=== PATIENT | male | born 1965 | race Caucasian/White ===

== ENCOUNTER 2019-12-10 09:16 | Emergency (ER) | payer MEDICARE ==
[2019-12-10] MEDS ORDERED: Dextrose 50% Abboject 50 ML SYRINGE ONE (09:31)
[2019-12-10] MEDS ORDERED: Insulin Regular 300 UNITS/3 ML VIAL ONE (09:31)
[2019-12-10] MEDS ORDERED: Norepinephrine 8 MG/0.9% NS 0 ML ONE (09:37)
[2019-12-10] MEDS ORDERED: Norepinephrine 8 MG/0.9% NS 250 ML ONE (09:43)
[2019-12-10] MEDS ORDERED: Albuterol Sulfate 2.5 mg/3 ml Neb ONE (09:46)
[2019-12-10] MEDS ORDERED: Albuterol Sulfate 2.5 mg/0.5 ml Neb ONE (09:47)
[2019-12-10 10:18] LABS: ALT (SGPT) 60 U/L (8-55); AST (SGOT) 128 U/L (5-34); Albumin 1.4 g/dL (3.5-5.0); Alkaline Phosphatase 148 U/L (40-110); Anion Gap 16 mmol/L (10-20); BUN (Urea Nitrogen) 53 mg/dL (8.4-25.7); Bilirubin, Total 0.4 mg/dL (0.2-1.2); CK (CPK) 157 U/L (30-200); Calc. Creatinine Clearance 0 mL/min (70-130); Calcium 9.2 mg/dL (7.8-10.44); Carbon Dioxide 17 mmol/L (22-29); Chloride 110 mmol/L (98-107); Estimated GFR-MDRD 35; Globulin 3.5 g/dL (2.4-3.5); Glucose 97 mg/dL (70-105); Potassium 4.8 mmol/L (3.5-5.1); Protein, Total 4.9 g/dL (6.0-8.3); Sodium 138 mmol/L (136-145)
[2019-12-10 10:25] LABS: Band 4 % (5-11); Hemoglobin 7.7 g/dL (14.0-18.0); Hypochromia SLIGHT = 6-15 cells (100X) (0-5/hpf); Lymphocytes 63 % (21-51); MDiff Complete? YES; Mean Corpuscular HGB CONC 31.7 g/dL (32.0-36.0); Mean Corpuscular Hemoglobin 31.4 pg (27.0-31.0); Mean Corpuscular Volume 99.2 fL (78.0-98.0); Mean Platelet Volume 7.9 fL (7.4-10.4); Metamyelocyte 2 % (0-0); Monocytes 4 % (0-10); Myelocyte 1 % (0-0); Neutrophil 26 % (42-75); Nucleated RBC 1 % (0); Platelet Count 116 thou/uL (130-400); Platelet Morphology Comment Appears Decreased; Polychromasia SLIGHT = 2-3 cells (100X) (0-2/hpf); RBC Distribution Width 13.2 % (11.5-14.5); Red Blood Cell (RBC) Count 2.45 mill/uL (4.70-6.10); White Blood Cell (WBC) Count 18.8 thou/uL (4.8-10.8)
[2019-12-10 10:40] LABS: CKMB 2.1 ng/mL (0-6.6)
[2019-12-10] MEDS ORDERED: EPINEPHrine 1 MG/10 ML Abboject SYRINGE ONE ×2 (12:42→12:43)
[2019-12-10] MEDS ORDERED: Calcium Chloride 1 GM/10 ML Abboject SYRINGE ONE ×2 (12:42→12:43)
[2019-12-10] MEDS ORDERED: Sodium Bicarb 50 MEQ/50 ML Abboject 8.4% SYRINGE ONE ×2 (12:42→12:43)
[2019-12-10] MEDS ORDERED: Atropine Sulfate 1 mg/10 ml Syringe ONE (12:43)
[2019-12-10] MEDS ORDERED: EPINEPHrine 1 MG/ML AMP ONE (12:43)
--- NOTE | 2019-12-18 13:57 | EKG ---
Test Reason : Blood Pressure : / mmHG Vent. Rate : 086 BPM Atrial Rate : 086 BPM P-R Int : 000 ms QRS Dur : 140 ms QT Int : 382 ms P-R-T Axes : 000 -64 078 degrees QTc Int : 457 ms Wide QRS rhythm with occasional Premature ventricular complexes and Fusion complexes Left axis deviation Right bundle branch block Inferior infarct , age undetermined Abnormal ECG Confirmed by KD CANO DO ([id number]), news video editor RONALDO PLATT ([id number]) on 12/18/2019 1:56:46 PM Referred By: Confirmed By:KD CANO DO
== END 2019-12-10 10:49 | disposition expired ==
LOC: ERS 09:16
DX: I46.9 Cardiac arrest, cause unspecified (principal); I48.91 Unspecified atrial fibrillation; F43.10 Post-traumatic stress disorder, unspecified; F31.9 Bipolar disorder, unspecified; K21.9 Gastro-esophageal reflux disease without esophagitis; I10 Essential (primary) hypertension
CPT/HCPCS: 31500; 36416; 36556; 80053; 82550; 82553; 83605; 84484; 85025; 92950; 93005; 94002; 94644; 96365; 96375; 96376; J0171; J0461; J1815; J7070; J7611